=== PATIENT | female | born 1945 | race Caucasian/White ===

== ENCOUNTER 2024-06-01 06:56 | Day surgery (SDC) | payer MEDICARE, OTHER ==
[~2024-06-01] VITALS: Ht 172.7 cm; Wt 83.6 kg
[2024-06-01] VITALS (7 sets, daily range): BP systolic 106–128; BP diastolic 55–94; PULSE 61–71; TEMP 98.1
[2024-06-01] MEDS ORDERED: NS Flush 10 ML SYRINGE PRN ICA (07:30)
[2024-06-01] MEDS ORDERED: 1/2 NS 1,000 ML IV SCH (07:30)
[2024-06-01 07:34] LABS: HEMATOCRIT 43.3 % (37.0-47.0); HEMOGLOBIN 14.5 g/dl (12.5-16.0); MEAN CELL VOLUME 91 fl (80.0-100.0); MEAN CORPUSCULAR HEMOGLOBIN 31 pg (27-31); MEAN CORPUSCULAR HGB CONC 34 g/dl (33.0-37.0); PLATELET COUNT 264 K/mm3 (130-400); RED BLOOD COUNT 4.75 M/mm3 (4.10-5.30); REDCELL DISTRIBUTION WIDTH-CV 13.2 % (11.5-14.5)
[2024-06-01] MEDS ORDERED: ELIQUIS 5MG PO (08:02)
[2024-06-01] MEDS ORDERED: LEXAPRO 10MG10 MG PO (08:03)
[2024-06-01] MEDS ORDERED: ZETIA 10MG TAB10 MG PO (08:04)
[2024-06-01] MEDS ORDERED: FLONASEALLERGY NS (08:05)
[2024-06-01] MEDS ORDERED: MAGNESIUM ELEM300 MG PO (08:06)
[2024-06-01] MEDS ORDERED: NIZORAL CREAM15 GM TP (08:06)
[2024-06-01] MEDS ORDERED: TOPROL XL 25MG25 MG PO (08:07)
[2024-06-01] MEDS ORDERED: PRILOSEC 20MG20 MG PO (08:07)
[2024-06-01] MEDS ORDERED: B-121000 MCG PO (08:09)
[2024-06-01] MEDS ORDERED: LR 1,000 ML IV SCH (08:15)
[2024-06-01 08:19] LABS: INR 1.3 (0.8-3.0); PROTHROMBIN TIME 14.3 SECONDS (9.7-12.8)
[2024-06-01 08:28] LABS: CALCIUM 9.5 mg/dL (8.4-10.2); CREATININE, serum 0.89 mg/dL (0.57-1.11); POTASSIUM 4.2 mEq/L (3.5-4.5)
[2024-06-01] MEDS ORDERED: Lidocaine PF 2% (20 MG/ML) 5 ML VIAL ONE (08:55)
[2024-06-01] MEDS ORDERED: NS Flush 10 ML SYRINGE BID ICA SCH (09:00)
[2024-06-01] MEDS ORDERED: ZEBETA 5MG5 MG PO (09:27)
[2024-06-01] MEDS ORDERED: MUCUS RELIEF1200 MG PO (09:32)
--- NOTE | 2024-06-01 09:34 | NUR ---
Maryanne is awake and alert after LIZ with Dr. Guzman. BS report and handoff of care to Natasha DEL TORO
--- NOTE | 2024-06-01 11:42 | NUR ---
Pt ambulated with a steady gait to EU12, accompanied by . IV started, EKG done. Meds and HX reviewed with the pt. Consent for the procedure signed. Post procdedure the pt recovered in EU12. Offered the pt something to eat and drink. Accepted an ice water, declined anything to eat. The pt reported they were feeling dizzy. Dr. Guzman went into the room to see the pt. Advised the pt getting something to eat and drink. This nurse brought the pt some food to eat. The pt later reported they were feeling better and their dizziness subsided after eating. Discharge education and information discussed with the pt. No questions at the time. IV dc'd and the site was wrapped with coban. Pt exited the unit by wheelchair accompanied by this nurse to their husbands car.
== END 2024-06-01 11:27 | disposition home or self-care (01) ==
LOC: COL.CAR 06:56
PROVIDERS: Internal Medicine Cardiovascular Disease
DX: I34.0 Nonrheumatic mitral (valve) insufficiency (principal); I10 Essential (primary) hypertension
CPT/HCPCS: J2704